=== PATIENT | female | born 1980 | race American Indian/Alaskan Native ===

== ENCOUNTER 2016-07-20 07:45 | Outpatient (CLI) | payer MEDICAID ==
[2016-07-20 08:51] VITALS: BP 135/72
== END 2016-07-20 09:35 | disposition home or self-care (01) ==
LOC: TRG 07:45
PROVIDERS: ATTEND Obstetrics & Gynecology Gynecology
DX: O77.9 Labor and delivery complicated by fetal stress, unspecified (principal); O47.1 False labor at or after 37 completed weeks of gestation; Z3A.39 39 weeks gestation of pregnancy
CPT/HCPCS: 59025

== ENCOUNTER 2016-07-20 14:16 | Inpatient (IN) | payer MEDICAID ==
[2016-07-20] MEDS ORDERED: PITOCin/NS 20 UNIT/1000ML DRIP 1,000 ML IV ONE (15:01)
--- NOTE | 2016-07-20 15:01 | History and Physical Report ---
History of Present Illness Date of examination: 07/20/16 Date of admission: 07/20/16 14:48 Chief complaint: Spontaneous ruptured membranes History of present illness: 35-year-old at 39+2 weeks presents in active labor, she is a [facility] patient. Per patient, care has been unremarkable have no records at this time. GBS negative per patient On exam on LDRP, she has bulging membranes with no cervix felt ?~ 8-9 cm suspected. Bedside sono confirms cephalic presentation. Past History Past Medical History: no pertinent history Past Surgical History: no surgical history (no abdominal surgery) [employer] History: herpes. denies: chlamydia, gonorrhea, hepatitis B, hepatitis C, HIV, syphilis, trichomonas Social history: , full code. denies: smoking, alcohol abuse, prescription drug abuse, IV drug use - Obstetrical History Expected Date of Delivery: 07/24/16 Actual Gestation: 39 Week(s) 3 Day(s) : 5 Para: 4 Medications and Allergies Allergies Allergy/AdvReac Type Severity Reaction Status Date / Time amoxicillin Allergy Severe Hives Verified 07/20/16 08:13 Review of Systems Constitutional: no fever, no chills Eyes: no diplopia, no photophobia Cardiovascular: no chest pain, no orthopnea, no syncope, no lightheadedness, no shortness of breath, no dyspnea on exertion, no high blood pressure Respiratory: no shortness of breath, no dyspnea on exertion Gastrointestinal: abdominal pain (Painful contractions), no nausea, no vomiting Genitourinary: leakage of fluid, contractions, no vaginal bleeding - Physical Exam Abdomen: Positive: normal appearance, soft. Negative: distention, tenderness, guarding, rigidity Genitourinary (Female): Positive: normal external genitalia Uterus: Positive: enlarged (EFW ~ 3500) Adnexa: both: normal Extremities: Positive: normal - Obstetrical FHR: category 1 Cervical Dilatation: 8.5 Results All other labs normal. Assessment and Plan A: IUP at 39+3 wks in active labour -cat 1 tracing P: -Admit -Routine labs -Anticipate - Patient Problems (1) 39 weeks gestation of Current Visit: Yes Status: Acute (2) Spontaneous rupture of amniotic membranes Current Visit: Yes Status: Acute (3) Active labor at term Current Visit: Yes Status: Acute
[2016-07-20] MEDS ORDERED: LACTATED RINGERS 1,000 ML ONE (15:06)
[2016-07-20] MEDS ORDERED: SUBLIMAZE ONE (15:07)
[2016-07-20] MEDS ORDERED: ZOFRAN IV PRN (15:09)
[2016-07-20] MEDS ORDERED: SUBLIMAZE IV PRN (15:09)
[2016-07-20] MEDS ORDERED: BRETHINE IVP PRN (15:09)
[2016-07-20] MEDS ORDERED: MINERAL OIL PO PRN (15:09)
[2016-07-20] MEDS ORDERED: XYLOCAINE 2% INFILTRATI ONE (15:09)
[2016-07-20] MEDS ORDERED: ePHEDrine SULFATE IV PRN ×2 (15:09→17:12)
[2016-07-20] MEDS ORDERED: BRETHINE SUB-Q PRN (15:09)
[2016-07-20] MEDS: LACTATED RINGERS 1,000 ML IV SCH ×2 (15:12→17:00)
[2016-07-20 15:30] LABS: Hematocrit 34.1 % (30.3-42.9); Hemoglobin 11.4 gm/dl (10.1-14.3); Mean Corpuscular HGB Conc 33 % (30-34); Mean Corpuscular Hemoglobin 32 pg (28-32); Mean Corpuscular Volume 96 fl (79-97); Platelet Count 259 K/mm3 (140-440); Red Blood Count 3.56 M/mm3 (3.65-5.03); Red Cell Distribution Width 15.7 % (13.2-15.2); White Blood Count 10.6 K/mm3 (4.5-11.0)
[2016-07-20] MEDS ORDERED: PITOCin/NS 20 UNIT/1000ML DRIP 1,000 ML IV SCH ×2 (16:00→23:00)
[2016-07-20] MEDS ORDERED: PITOCin/NS 30 UNIT/500ML 500 ML IV SCH (16:00)
[2016-07-20] MEDS ORDERED: fentaNYL-BUPIV 2 MCG/ML-0.125% 100 ML EPIDURAL ONE (17:06)
[2016-07-20] MEDS ORDERED: NARCAN 2 MG/2 ML IV PRN (17:12)
--- NOTE | 2016-07-20 17:12 | Anesthesia Consultation ---
Anesthesia Consult and Med Hx Date of service: 07/20/16 - Airway Anesthetic Teeth Evaluation: Good ROM Head & Neck: Adequate Mental/Hyoid Distance: Adequate Mallampati Class: Class II - Pre-Operative Health Status ASA Pre-Surgery Classification: ASA2, Emergency Proposed Anesthetic Plan: Epidural, Spinal - Pulmonary Hx Asthma: No COPD: No Hx Pneumonia: No - Cardiovascular System Hx Hypertension: No - Central Nervous System Hx Seizures: No Hx Psychiatric Problems: No - Endocrine Hx Renal Disease: No Hx End Stage Renal Disease: No Hx Hypothyroidism: No Hx Hyperthyroidism: No - Hematic Hx Anemia: No Hx Sickle Cell Disease: No - Other Systems Hx Alcohol Use: No
[2016-07-20] MEDS: PITOCin/NS 30 UNIT/500ML 500 ML IV SCH ×2 (17:15→18:27)
[2016-07-20] MEDS ORDERED: XYLOCAINE MPF 2% ONE (17:36)
[2016-07-20] MEDS ORDERED: fentaNYL-BUPIV 2 MCG/ML-0.125% 100 ML EPIDURAL SCH (18:00)
--- NOTE | 2016-07-20 19:00 | Progress Note ---
Assessment and Plan - Patient Problems (1) 39 weeks gestation of Current Visit: Yes Status: Acute (2) Spontaneous rupture of amniotic membranes Current Visit: Yes Status: Acute (3) Active labor at term Current Visit: Yes Status: Acute Subjective - Subjective Date of service: 07/20/16 Interval history: Doing well, epidural in place Patient reports: loss of fluid, contractions, no vaginal bleeding Objective - Vital Signs Vital Signs: Vital Signs - 12hr 07/20/16 07/20/16 07/20/16 15:00 16:44 16:54 Temperature 97.6 F Pulse Rate 80 92 H Respiratory 18 Rate Blood Pressure 135/79 144/77 O2 Sat by Pulse Oximetry 07/20/16 07/20/16 07/20/16 16:56 16:58 17:00 Temperature Pulse Rate 109 H 82 90 Respiratory Rate Blood Pressure 189/93 144/67 139/65 O2 Sat by Pulse Oximetry 07/20/16 07/20/16 07/20/16 17:02 17:04 17:05 Temperature Pulse Rate 101 H 96 H 81 Respiratory Rate Blood Pressure 155/99 148/72 O2 Sat by Pulse 99 Oximetry 07/20/16 07/20/16 07/20/16 17:06 17:08 17:10 Temperature Pulse Rate 77 77 77 Respiratory Rate Blood Pressure 145/67 152/70 O2 Sat by Pulse 99 Oximetry 07/20/16 07/20/16 07/20/16 17:11 17:12 17:14 Temperature Pulse Rate 80 80 75 Respiratory Rate Blood Pressure 143/91 138/70 149/67 O2 Sat by Pulse Oximetry 07/20/16 07/20/16 07/20/16 17:15 17:17 17:18 Temperature Pulse Rate 78 92 H 77 Respiratory 18 Rate Blood Pressure 151/100 129/68 O2 Sat by Pulse 95 Oximetry 07/20/16 07/20/16 07/20/16 17:20 17:22 17:24 Temperature Pulse Rate 79 77 85 Respiratory Rate Blood Pressure 138/76 144/74 131/73 O2 Sat by Pulse 97 Oximetry 07/20/16 07/20/16 07/20/16 17:25 17:26 17:27 Temperature Pulse Rate 80 78 82 Respiratory Rate Blood Pressure 133/73 O2 Sat by Pulse 99 94 Oximetry 07/20/16 07/20/16 07/20/16 17:28 17:30 17:33 Temperature Pulse Rate 81 75 78 Respiratory Rate Blood Pressure 147/65 142/65 O2 Sat by Pulse 93 Oximetry 07/20/16 07/20/16 07/20/16 17:35 17:39 17:40 Temperature Pulse Rate 88 73 77 Respiratory Rate Blood Pressure 134/62 O2 Sat by Pulse 98 99 Oximetry 07/20/16 07/20/16 07/20/16 17:43 17:45 17:46 Temperature Pulse Rate 77 77 76 Respiratory Rate Blood Pressure 161/74 142/63 140/65 O2 Sat by Pulse 98 Oximetry 07/20/16 07/20/16 07/20/16 17:48 17:50 17:52 Temperature Pulse Rate 81 83 82 Respiratory Rate Blood Pressure 145/66 144/70 145/65 O2 Sat by Pulse 96 Oximetry 07/20/16 07/20/16 07/20/16 17:54 17:55 17:56 Temperature Pulse Rate 78 79 81 Respiratory Rate Blood Pressure 131/58 138/65 O2 Sat by Pulse 97 Oximetry 07/20/16 07/20/16 07/20/16 17:58 18:00 18:01 Temperature Pulse Rate 81 87 85 Respiratory Rate Blood Pressure 128/62 140/79 O2 Sat by Pulse 98 Oximetry 07/20/16 07/20/16 07/20/16 18:03 18:05 18:06 Temperature Pulse Rate 80 78 83 Respiratory Rate Blood Pressure 152/68 126/71 133/64 O2 Sat by Pulse 95 Oximetry 07/20/16 07/20/16 07/20/16 18:08 18:10 18:12 Temperature Pulse Rate 85 77 81 Respiratory Rate Blood Pressure 142/70 139/68 135/59 O2 Sat by Pulse 97 Oximetry 07/20/16 07/20/16 07/20/16 18:15 18:16 18:18 Temperature Pulse Rate 84 82 77 Respiratory Rate Blood Pressure 140/66 141/77 142/75 O2 Sat by Pulse 98 Oximetry 07/20/16 07/20/16 07/20/16 18:20 18:22 18:24 Temperature Pulse Rate 80 86 82 Respiratory Rate Blood Pressure 141/75 137/70 135/66 O2 Sat by Pulse 95 Oximetry 07/20/16 07/20/16 07/20/16 18:25 18:26 18:28 Temperature Pulse Rate 80 85 78 Respiratory Rate Blood Pressure 144/68 145/70 O2 Sat by Pulse 98 Oximetry 07/20/16 07/20/16 07/20/16 18:30 18:31 18:33 Temperature Pulse Rate 85 90 74 Respiratory Rate Blood Pressure 149/64 134/62 O2 Sat by Pulse 97 Oximetry 07/20/16 07/20/16 07/20/16 18:35 18:36 18:38 Temperature Pulse Rate 79 80 82 Respiratory Rate Blood Pressure 136/65 145/74 143/72 O2 Sat by Pulse 96 Oximetry 07/20/16 07/20/16 07/20/16 18:40 18:42 18:45 Temperature Pulse Rate 79 80 80 Respiratory Rate Blood Pressure 147/75 149/70 152/71 O2 Sat by Pulse 98 98 Oximetry 07/20/16 07/20/16 07/20/16 18:46 18:48 18:50 Temperature Pulse Rate 77 77 76 Respiratory Rate Blood Pressure 151/74 146/70 149/70 O2 Sat by Pulse 99 Oximetry 07/20/16 07/20/16 07/20/16 18:53 18:54 18:55 Temperature Pulse Rate 91 H 79 85 Respiratory Rate Blood Pressure 164/78 160/77 O2 Sat by Pulse 97 Oximetry 07/20/16 18:56 Temperature Pulse Rate 80 Respiratory Rate Blood Pressure 150/74 O2 Sat by Pulse Oximetry - Exam FHR: category 1 Cervical Dilatation: 9 station: -1 - Labs Labs: Abnormal Labs 07/20/16 15:00 RBC 3.56 L RDW 15.7 H Laboratory Results - last 24 hr 07/20/16 07/20/16 15:00 15:00 WBC 10.6 RBC 3.56 L Hgb 11.4 Hct 34.1 MCV 96 MCH 32 MCHC 33 RDW 15.7 H Plt Count 259 Blood Type A POSITIVE Antibody Screen Negative
[2016-07-20] MEDS ORDERED: HEMABATE IM ONE ×2 (20:37→22:01)
[2016-07-20] MEDS ORDERED: MAGNESIUM SULFATE 40GM/1000ML 1,000 ML IV ONE (20:55)
[2016-07-20] MEDS ORDERED: MAGNESIUM SULFATE 4GM/100ML 100 ML IV ONE ×2 (20:55→22:04)
[2016-07-20] MEDS ORDERED: NORMODYNE IV ONE (21:12)
[2016-07-20] MEDS ORDERED: CYTOTEC ONE (21:44)
--- NOTE | 2016-07-20 21:55 | Procedure Note ---
OB Delivery Note - Delivery Date of Delivery: 07/20/16 Surgeon: CHILO CARDONA Estimated blood loss: 500cc - Vaginal Delivery presentation: vertex Delivery position: OP Intrapartum events: meconium, gestational hypertension, shoulder dystocia (less than 30 sec; resolved with Elzbieta and suprapubic pressure) Delivery induction: none Delivery augmentation: pitocin Delivery monitor: external FHT, external uterine Route of delivery: Delivery placenta: manual, adherent Delivery cord: 3 umbilical vessels Episiotomy: none Delivery laceration: none Anesthesia: epidural - Infant A at 1 minute: 8 at 5 minutes: 9 Infant Gender: Female (Del @ 20:25, weight is 8#1 or 3647 gms)
--- NOTE | 2016-07-20 21:59 | Event Note ---
Date: 07/20/16 Patient status post normal vaginal delivery. Intrapartum process complicated by elevated blood pressure with systolic in the 180s range and diastolic in the 100s range. Patient also had shoulder dystocia of less than 30 seconds resolved with suprapubic pressure and Mireille. She had a long third stage of labor requiring Manual extraction of the placenta. Note the patient has been started on magnesium, also received IV labetalol 10 mg times one dose Miso 700 mcg placed NM Plan: -Continue IV magnesium -Obtain HELLP labs -Labetalol 200mg BID -IV antiHTN when necessary -Keep NPO for now -Start Unasyn (Pt claims she has taken PCN previously)
[2016-07-20] MEDS ORDERED: TUCKS PAD TP PRN (22:01)
[2016-07-20] MEDS ORDERED: MILK OF MAGNESIA PO PRN (22:01)
[2016-07-20] MEDS ORDERED: TYLENOL PO PRN (22:01)
[2016-07-20] MEDS ORDERED: CYTOTEC PR ONE (22:01)
[2016-07-20] MEDS ORDERED: PHENERGAN PO PRN (22:01)
[2016-07-20] MEDS ORDERED: LANSINOH TP PRN (22:01)
[2016-07-20] MEDS ORDERED: DULCOLAX PR PRN (22:01)
[2016-07-20] MEDS ORDERED: ANUCORT-HC PR PRN (22:01)
[2016-07-20] MEDS ORDERED: DERMOPLAST TP PRN (22:01)
[2016-07-20] MEDS ORDERED: BENADRYL PO PRN (22:01)
[2016-07-20] MEDS ORDERED: PHENERGAN PR PRN (22:01)
[2016-07-20] MEDS ORDERED: APRESOLINE IV PRN (22:04)
[2016-07-20] MEDS ORDERED: NORMODYNE IV PRN (22:04)
[2016-07-20] MEDS ORDERED: NACL 0.9% 500 ML 500 ML IV ONE (22:08)
[2016-07-20 22:50] LABS: Hematocrit 30.3 % (30.3-42.9); Hemoglobin 10.1 gm/dl (10.1-14.3); Mean Corpuscular HGB Conc 33 % (30-34); Mean Corpuscular Hemoglobin 32 pg (28-32); Mean Corpuscular Volume 97 fl (79-97); Platelet Count 243 K/mm3 (140-440); Red Blood Count 3.11 M/mm3 (3.65-5.03); Red Cell Distribution Width 15.6 % (13.2-15.2); White Blood Count 16.2 K/mm3 (4.5-11.0)
[2016-07-20] MEDS ORDERED: MAGNESIUM SULFATE 40GM/1000ML 1,000 ML IV SCH (23:00)
[2016-07-20] MEDS ORDERED: SODIUM CHLORIDE FLUSH SYRINGE 10 ML IV PRN (23:00)
[2016-07-20] MEDS ORDERED: LACTATED RINGERS 1,000 ML IV SCH (23:00)
[2016-07-20 23:11] LABS: Anion Gap 22 mmol/L; Blood Urea Nitrogen 7 mg/dL (7-17); Calcium 8.1 mg/dL (8.4-10.2); Carbon Dioxide 16 mmol/L (22-30); Chloride 99.7 mmol/L (98-107); Glucose 121 mg/dL (65-100); Potassium 3.8 mmol/L (3.6-5.0); Sodium 134 mmol/L (137-145)
[2016-07-20] MEDS: SENOKOT S PO SCH (23:59)
[2016-07-21] MEDS: NORMODYNE PO SCH ×3 (00:01→22:30)
[2016-07-21] MEDS: UNASYN IV SCH ×4 (00:03→22:25)
[2016-07-21] MEDS: NS IV SCH ×4 (00:03→22:25)
[2016-07-21] MEDS: NORCO 5/325 PO PRN ×2 (01:35→22:27)
[2016-07-21] MEDS: ZOFRAN IV PRN ×2 (02:28→11:52)
[2016-07-21] MEDS: MORPHINE IV PRN ×2 (03:55→08:42)
--- NOTE | 2016-07-21 09:27 | Progress Note ---
Assessment and Plan PPD # 1 s/p -stable Issues -Sudden intrapartum elevation in blood pressure ?Pre-E ??Gest HTN -Prolonged 3rd stage requiring manual extraction -PPH ?Retained placenta -s/p Shoulder dystocia Meds: -Magnesium -Labetalol 200mg BID -Unasyn P: -Start misoprostol 400 g Q4H x 3 doses -Obtain pelvic sono -Await H&H at 10 AM -Continue magnesium at 10 AM -Nothing by mouth until sono report available -Discontinue antibiotics after 2 consecutive doses -Final disposition after results available - Patient Problems (1) Shoulder dystocia during labor and delivery, delivered Current Visit: Yes Status: Acute (2) (normal spontaneous vaginal delivery) Current Visit: Yes Status: Acute (3) 39 weeks gestation of Current Visit: Yes Status: Acute (4) Spontaneous rupture of amniotic membranes Current Visit: Yes Status: Acute (5) Active labor at term Current Visit: Yes Status: Acute Subjective - Subjective Date of service: 07/21/16 Principal diagnosis: PPD#1 , PPH, HTNsive d/o of Interval history: Patient seen & examined, appeared stable and good spirits. RN reports gush of blood last night, which has slowed down. Patient denies fever or chills, no shortness of breath or chest pain, weakness or dizziness Bleeding has slowed down per patient. Pad placed ~ 1 hour ago moderately soaked Patient reports: appetite normal, voiding normally, pain well controlled, flatus , ambulating normally, no dizzy ambulation, no nauseated Pearblossom: doing well Objective - Vital Signs Latest vital signs: Vital Signs Temp Pulse Pulse Resp BP BP Pulse Ox 07/21/16 08:37 98.2 F 105 H 18 140/65 07/21/16 06:00 98.9 F 96 H 18 120/64 07/21/16 04:00 99.1 F 97 H 18 129/62 07/21/16 02:00 100.3 F H 97 H 20 117/54 07/21/16 00:01 103 H 143/73 07/20/16 22:47 100 H 144/71 07/20/16 22:42 104 H 137/69 07/20/16 22:40 101.2 F H 87 22 155/75 07/20/16 22:27 103 H 141/68 07/20/16 22:07 99.7 F H 18 07/20/16 21:56 105 H 138/61 07/20/16 21:44 109 H 124/63 07/20/16 21:41 103 H 139/66 07/20/16 21:26 102 H 136/61 07/20/16 21:17 108 H 174/74 07/20/16 21:13 108 H 174/74 07/20/16 20:56 81 161/69 07/20/16 20:41 96 H 156/70 07/20/16 20:29 100 H 157/84 07/20/16 20:26 100 H 187/105 07/20/16 20:19 51 L 81 L 07/20/16 20:17 99 H 98 07/20/16 20:12 100 H 98 07/20/16 20:07 95 H 98 07/20/16 20:02 90 98 07/20/16 19:58 103 H 170/67 07/20/16 19:57 104 H 98 07/20/16 19:50 84 97 07/20/16 19:45 89 96 07/20/16 19:41 85 158/92 07/20/16 19:40 86 99 07/20/16 19:35 84 97 07/20/16 19:30 88 98 07/20/16 19:27 81 148/70 07/20/16 19:25 84 97 07/20/16 19:20 84 98 07/20/16 19:15 82 98 07/20/16 19:12 90 152/71 07/20/16 19:10 82 97 07/20/16 19:09 77 146/74 07/20/16 19:07 82 153/77 07/20/16 19:05 80 99 07/20/16 19:04 78 149/74 07/20/16 19:02 98.2 F 83 18 153/71 07/20/16 19:01 88 159/79 07/20/16 19:00 85 98 07/20/16 18:59 86 162/81 07/20/16 18:56 80 150/74 07/20/16 18:55 85 97 07/20/16 18:54 79 160/77 07/20/16 18:53 91 H 164/78 07/20/16 18:50 76 149/70 99 07/20/16 18:48 77 146/70 07/20/16 18:46 77 151/74 07/20/16 18:45 80 152/71 98 07/20/16 18:42 80 149/70 07/20/16 18:40 79 147/75 98 07/20/16 18:38 82 143/72 07/20/16 18:36 80 145/74 07/20/16 18:35 79 136/65 96 07/20/16 18:33 74 134/62 07/20/16 18:31 90 149/64 07/20/16 18:30 85 97 07/20/16 18:28 78 145/70 07/20/16 18:26 85 144/68 07/20/16 18:25 80 98 07/20/16 18:24 82 135/66 07/20/16 18:22 86 137/70 07/20/16 18:20 80 141/75 95 07/20/16 18:18 77 142/75 07/20/16 18:16 82 141/77 07/20/16 18:15 84 140/66 98 07/20/16 18:12 81 135/59 07/20/16 18:10 77 139/68 97 07/20/16 18:08 85 142/70 07/20/16 18:06 83 133/64 07/20/16 18:05 78 126/71 95 07/20/16 18:03 80 152/68 07/20/16 18:01 85 140/79 07/20/16 18:00 87 98 07/20/16 17:58 81 128/62 07/20/16 17:56 81 138/65 07/20/16 17:55 79 97 07/20/16 17:54 78 131/58 07/20/16 17:52 82 145/65 07/20/16 17:50 83 144/70 96 07/20/16 17:48 81 145/66 07/20/16 17:46 76 140/65 07/20/16 17:45 77 142/63 98 07/20/16 17:43 77 161/74 07/20/16 17:40 77 99 07/20/16 17:39 73 134/62 07/20/16 17:35 88 98 07/20/16 17:33 78 142/65 07/20/16 17:30 75 93 07/20/16 17:28 81 147/65 07/20/16 17:27 82 94 07/20/16 17:26 78 133/73 07/20/16 17:25 80 99 07/20/16 17:24 85 131/73 07/20/16 17:22 77 144/74 07/20/16 17:20 79 138/76 97 07/20/16 17:18 77 129/68 07/20/16 17:17 92 H 151/100 07/20/16 17:15 78 18 95 07/20/16 17:14 75 149/67 07/20/16 17:12 80 138/70 07/20/16 17:11 80 143/91 07/20/16 17:10 77 99 07/20/16 17:08 77 152/70 07/20/16 17:06 77 145/67 07/20/16 17:05 81 99 07/20/16 17:04 96 H 148/72 07/20/16 17:02 101 H 155/99 07/20/16 17:00 90 139/65 07/20/16 16:58 82 144/67 07/20/16 16:56 109 H 189/93 07/20/16 16:54 92 H 144/77 07/20/16 16:44 80 135/79 07/20/16 15:00 97.6 F 18 Intake and Output 07/20/16 07/21/16 07/21/16 22:59 06:59 14:59 Intake Total 2738 120 Output Total 100 700 Balance -100 2038 120 Intake: IV 875 PITOCin/NS 20 UNIT/1000ML 525 DRIP 1,000 ML @ 125 mls/ hr IV DIRECT ISAK Rx#: [id number] Magnesium Sulfate 40Gm/ 350 1000ML 1,000 ml @ 2 GM/HR 50 mls/hr IV TITR ISAK Rx #:[id number] Oral 120 120 Other 1743 Output: Urine 100 700 Straight 100 Indwelling Catheter 700 Other: Intake, Other Source Saline Solution Total, Intake Amount 120 120 Total, Output Amount 200 Estimated Blood Loss 500 - Exam Abdomen: Present: normal appearance, soft. Absent: distention, tenderness, guarding, rigidity Uterus: Present: tenderness, fundal height below umbilicus Extremities: Present: normal - Labs Labs: Abnormal lab results 07/20/16 07/20/16 07/20/16 Range/Units 15:00 15:00 22:40 WBC 16.2 H (4.5-11.0) K/mm3 RBC 3.56 L 3.11 L (3.65-5.03) M/mm3 RDW 15.7 H 15.6 H (13.2-15.2) % Sodium (137-145) mmol/L Carbon Dioxide (22-30) mmol/L Creatinine (0.7-1.2) mg/dL Glucose (65-100) mg/dL Calcium (8.4-10.2) mg/dL Magnesium (1.7-2.3) mg/dL Crossmatch See Detail 07/20/16 07/21/16 07/21/16 Range/Units 22:40 04:58 07:23 WBC (4.5-11.0) K/mm3 RBC (3.65-5.03) M/mm3 RDW (13.2-15.2) % Sodium 134 L (137-145) mmol/L Carbon Dioxide 16 L (22-30) mmol/L Creatinine 0.4 L (0.7-1.2) mg/dL Glucose 121 H (65-100) mg/dL Calcium 8.1 L (8.4-10.2) mg/dL Magnesium 3.9 H 3.6 H (1.7-2.3) mg/dL Crossmatch
[2016-07-21] MEDS ORDERED: CYTOTEC PO SCH (10:00)
[2016-07-21] MEDS: FEOSOL PO SCH ×2 (10:22→22:29)
[2016-07-21] MEDS: SENOKOT S PO SCH ×2 (10:22→22:30)
[2016-07-21] MEDS: PRENATAL VITAMIN PO SCH (10:22)
[2016-07-21 10:24] LABS: Hematocrit 22.5 % (30.3-42.9); Hemoglobin 7.5 gm/dl (10.1-14.3)
--- NOTE | 2016-07-21 10:55 | Progress Note ---
Subjective Date of service: 07/21/16 Principal diagnosis: PPD#1 , PPH, HTNsive d/o of Interval history: 1st after normal vaginal delivery Patent is in the bed, comfortable. Pain is well controlled with pain meds. Did not ambulated due to MgSO4 infusion. No residual neurological deficit. No anesthesia complications Objective - Constitutional Vitals: Vital Signs - 12hr 07/21/16 07/21/16 07/21/16 00:01 02:00 04:00 Temperature 100.3 F H 99.1 F Pulse Rate 103 H Pulse Rate [ 97 H 97 H Left] Respiratory 20 18 Rate Blood Pressure 143/73 Blood Pressure 117/54 129/62 [Left Arm] 07/21/16 07/21/16 07/21/16 06:00 08:37 10:24 Temperature 98.9 F 98.2 F Pulse Rate 105 H Pulse Rate [ 96 H 105 H Left] Respiratory 18 18 Rate Blood Pressure 140/65 Blood Pressure 120/64 140/65 [Left Arm] - Labs CBC & Chem 7: 07/21/16 10:01 07/20/16 22:40 Labs: Abnormal lab results 07/20/16 07/20/16 07/20/16 Range/Units 15:00 15:00 22:40 WBC 16.2 H (4.5-11.0) K/mm3 RBC 3.56 L 3.11 L (3.65-5.03) M/mm3 Hgb (10.1-14.3) gm/dl Hct (30.3-42.9) % RDW 15.7 H 15.6 H (13.2-15.2) % Sodium (137-145) mmol/L Carbon Dioxide (22-30) mmol/L Creatinine (0.7-1.2) mg/dL Glucose (65-100) mg/dL Calcium (8.4-10.2) mg/dL Magnesium (1.7-2.3) mg/dL Crossmatch See Detail 07/20/16 07/21/16 07/21/16 Range/Units 22:40 04:58 07:23 WBC (4.5-11.0) K/mm3 RBC (3.65-5.03) M/mm3 Hgb (10.1-14.3) gm/dl Hct (30.3-42.9) % RDW (13.2-15.2) % Sodium 134 L (137-145) mmol/L Carbon Dioxide 16 L (22-30) mmol/L Creatinine 0.4 L (0.7-1.2) mg/dL Glucose 121 H (65-100) mg/dL Calcium 8.1 L (8.4-10.2) mg/dL Magnesium 3.9 H 3.6 H (1.7-2.3) mg/dL Crossmatch 07/21/16 Range/Units 10:01 WBC (4.5-11.0) K/mm3 RBC (3.65-5.03) M/mm3 Hgb 7.5 L (10.1-14.3) gm/dl Hct 22.5 L D (30.3-42.9) % RDW (13.2-15.2) % Sodium (137-145) mmol/L Carbon Dioxide (22-30) mmol/L Creatinine (0.7-1.2) mg/dL Glucose (65-100) mg/dL Calcium (8.4-10.2) mg/dL Magnesium (1.7-2.3) mg/dL Crossmatch
--- NOTE | 2016-07-21 11:33 | Ultrasound Report ---
ULTRASOUND PELVIC LIMITED - TRANSABDOMINAL INDICATION: hemorrhage, vaginal bleeding. Status post vaginal delivery last night. Assess uterus for placental abnormality. COMPARISON: None similar at this institution. FINDINGS: Transabdominal pelvic sonography demonstrates an anteverted, uterus approximately 26.1 x 11.4 x 11.5 cm. Endometrial stripe appears unremarkable superiorly toward the fundus, though endometrial canal widened/occupied by approximately 10 x 5.2 cm echogenic material along its mid to lower extent with some intrinsic blood flow as on image 16, amongst others. No significant pelvic free fluid identified. Neither of the ovaries visualized. CONCLUSION: Echogenic material widening the mid to lower endometrial canal, possibly retained parts of conception in the given setting versus hemorrhagic products. Please correlate. Thank you for the opportunity to participate in this patient's care.
--- NOTE | 2016-07-21 12:29 | Event Note ---
Date: 07/21/16 Reviewed sonogram results, appears to have some retained products. Plan at this time is to proceed with D&C in the OR, transfuse 2 units packed red blood cells now due to low H&H.
[2016-07-21] MEDS ORDERED: REGLAN PO NR (14:00)
[2016-07-21] MEDS ORDERED: NACL 0.9% 500 ML 500 ML IV SCH (14:00)
[2016-07-21] MEDS ORDERED: PEPCID PO NR (14:00)
[2016-07-21] MEDS ORDERED: LACTATED RINGERS 1,000 ML IV SCH (14:00)
[2016-07-21] MEDS ORDERED: VERSED IV NR (14:00)
--- NOTE | 2016-07-21 14:41 | Anesthesia Consultation ---
Anesthesia Consult and Med Hx Date of service: 07/21/16 - Airway Anesthetic Teeth Evaluation: Good ROM Head & Neck: Adequate Mental/Hyoid Distance: Adequate Mallampati Class: Class II Intubation Access Assessment: Probably Good - Pulmonary Exam CTA: Yes - Cardiac Exam Cardiac Exam: RRR - Pre-Operative Health Status ASA Pre-Surgery Classification: ASA2 Proposed Anesthetic Plan: General - Pulmonary Hx Asthma: No COPD: No Hx Pneumonia: No - Cardiovascular System Hx Hypertension: No - Central Nervous System Hx Seizures: No Hx Psychiatric Problems: No - Endocrine Hx Renal Disease: No Hx End Stage Renal Disease: No Hx Hypothyroidism: No Hx Hyperthyroidism: No - Hematic Hx Anemia: No Hx Sickle Cell Disease: No - Other Systems Hx Alcohol Use: No Hx Obesity: Yes (BMI 35)
[2016-07-21] MEDS ORDERED: DILAUDID IV PRN (14:42)
--- NOTE | 2016-07-21 14:42 | Anesthesia Day of Surgery ---
Anesthesia Day of Surgery - Day of Surgery Patient Examined: Yes Patient H&P Reviewed: Yes Patient is NPO: Yes
[2016-07-21] MEDS ORDERED: DIPRIVAN 10 MG/ML IV ONE (15:40)
[2016-07-21] MEDS ORDERED: DILAUDID ONE (15:40)
[2016-07-21] MEDS ORDERED: XYLOCAINE MPF 2% ONE (15:41)
[2016-07-21] MEDS ORDERED: ZOFRAN ONE (15:41)
[2016-07-21] MEDS ORDERED: DECADRON ONE (15:41)
[2016-07-21] MEDS ORDERED: NITROGLYCERIN 50 MG/250 ML ONE (16:39)
[2016-07-21] MEDS ORDERED: NACL 0.9% 1000 ML 1,000 ML ONE (16:40)
[2016-07-21] MEDS ORDERED: NACL 0.9% IR ONE (16:50)
[2016-07-21] MEDS ORDERED: CYTOTEC VG ONE (16:50)
--- NOTE | 2016-07-21 17:25 | Operative Report ---
Operative Report Operative Report: DATE: 07/21/2016 PREOPERATIVE DIAGNOSIS: Retained adherent placenta POSTOP DIAGNOSIS: Same NAME OF PROCEDURE: Manual extraction of placenta in the OR SURGEON: CHILO CARDONA MD PEPPER CUTTER: None ANESTHESIA: LMA EBL: Minimal PATHOLOGY SPECIMEN: Placenta URINE OUTPUT: 100 mL prior to procedure FINDINGS: Open os, uterus measures >18 cm, thick mildly adherent segment of placenta in uterus DESCRIPTION OF PROCEDURE: Procedure in detail patient taken to the operating room where she was prepped and draped in sterile fashion placed in dorsolithotomy position. I placed my hand in the vagina and was able to access the uterus without need for dilation. I then placed a hand on her abdomen palpating her fundus while I gently teased out the remnant placental fragment which was mildy adherent. Minimall bleeding noted during procedure of dark colored blood. Patient was then started on Pitocin and received 800 g of Cytotec MD. She was also already on Unasyn. She tolerated the procedure well and instrument counts were correct 2 she is transferred to PACU in stable condition thank you
[2016-07-21] MEDS: MOTRIN PO SCH ×3 (18:45→22:28)
--- NOTE | 2016-07-21 19:29 | Post Anesthesia Evaluation ---
- Post Anesthesia Evaluation Patient Participated: Yes Airway Patent: Yes Stable Respiratory Function: Yes Nausea/Vomiting: No Temp > 96.8F: Yes Pain Manageable: Yes Adequeate Hydration: Yes Anesthesia Complications: No Block Receding Appropriately: Not Applicable Patient on Ventilator: No
[2016-07-21] MEDS: COLACE PO SCH (22:30)
[2016-07-22] MEDS: MORPHINE IV PRN (02:00)
[2016-07-22] MEDS: NS IV SCH (06:00)
[2016-07-22] MEDS: UNASYN IV SCH (06:00)
[2016-07-22 06:20] LABS: Basophils % (Auto) 0.2 % (0.0-1.8); Eosinophils % (Auto) 0.2 % (0.0-4.3); Hemoglobin 7.6 gm/dl (10.1-14.3); Mean Corpuscular HGB Conc 34 % (30-34); Mean Corpuscular Hemoglobin 33 pg (28-32); Mean Corpuscular Volume 95 fl (79-97); Platelet Count 191 K/mm3 (140-440); Red Blood Count 2.33 M/mm3 (3.65-5.03); Red Cell Distribution Width 15.5 % (13.2-15.2)
[2016-07-22] MEDS: NORCO 5/325 PO PRN ×2 (06:25→11:56)
[2016-07-22] MEDS: MOTRIN PO SCH ×2 (06:25→11:56)
--- NOTE | 2016-07-22 06:50 | Progress Note ---
Assessment and Plan PPD # 1 s/p /POD # 1 s/p evacuation of retained placenta -stable Issues -Sudden intrapartum elevation in blood pressure ?Pre-E ??Gest HTN -Prolonged 3rd stage requiring manual extraction -PPH ?Retained placenta -s/p Shoulder dystocia P: -Repeat H/H at 13:00 -D/C IV and heplaock -Possible D/C later today - Patient Problems (1) Shoulder dystocia during labor and delivery, delivered Current Visit: Yes Status: Acute (2) (normal spontaneous vaginal delivery) Current Visit: Yes Status: Acute (3) 39 weeks gestation of Current Visit: Yes Status: Acute (4) Spontaneous rupture of amniotic membranes Current Visit: Yes Status: Acute (5) Active labor at term Current Visit: Yes Status: Acute Subjective - Subjective Date of service: 07/22/16 Principal diagnosis: PPD#2/POD # 1 , PPH, HTNsive d/o of Interval history: Patient seen & examined, stable and doing well. No longer has heavy VB, ambulating w/out difficulty, adequate bowel and bladder function Patient reports: appetite normal, voiding normally, pain well controlled, ambulating normally, no dizzy ambulation, no nauseated : doing well Objective - Vital Signs Latest vital signs: Vital Signs Temp Pulse Pulse Resp BP BP Pulse Ox 07/22/16 04:35 98.6 F 89 20 136/60 07/22/16 02:00 18 07/21/16 23:30 98.6 F 86 22 143/56 07/21/16 22:30 88 142/62 07/21/16 21:00 98.6 F 91 H 142/62 07/21/16 18:35 98.4 F 83 20 147/61 07/21/16 18:20 86 20 135/60 96 07/21/16 18:00 86 20 137/63 96 07/21/16 17:45 97.8 F 85 18 133/81 96 07/21/16 17:40 92 H 20 136/61 96 07/21/16 17:35 90 20 133/61 94 07/21/16 17:30 92 H 18 127/60 95 07/21/16 17:25 88 16 123/70 95 07/21/16 17:22 99 F 89 23 126/68 97 07/21/16 16:16 99.1 F 94 H 24 148/51 95 07/21/16 16:00 98.9 F 90 20 131/54 96 07/21/16 15:36 98.9 F 90 22 132/49 95 07/21/16 15:06 99.2 F 94 H 20 137/54 95 07/21/16 14:36 99.1 F 94 H 24 148/51 95 07/21/16 14:20 97 H 20 135/61 07/21/16 10:24 105 H 140/65 07/21/16 08:37 98.2 F 105 H 18 140/65 Intake and Output 07/21/16 07/21/16 07/22/16 14:59 22:59 06:59 Intake Total 815 600 50 Balance 815 600 50 Intake: IV 575 600 50 PITOCin/NS 20 UNIT/1000ML 300 DRIP 1,000 ML @ 125 mls/ hr IV DIRECT ISAK Rx#: [id number] Magnesium Sulfate 40Gm/ 175 1000ML 1,000 ml @ 2 GM/HR 50 mls/hr IV TITR ISAK Rx #:[id number] Unasyn/Ns 1.5 gm/50 ml 50 50 50 ml @ 100 mls/hr IV Q6HR ISAK Rx#:[id number] Lactated Ringers 1,000 ml 300 @ 75 mls/hr IV DIRECT ISAK Rx#:[id number] Oral 240 Blood Product 0 Leukoreduced Red Blood 0 Cells Unit [id number] Other: Total, Intake Amount 120 Voiding Method Toilet # Voids Indwelling Catheter 1 - Exam Abdomen: Present: normal appearance, soft. Absent: distention, tenderness, guarding, rigidity Uterus: Present: fundal height below umbilicus. Absent: tenderness Extremities: Present: normal - Labs Labs: Abnormal lab results 07/20/16 07/21/16 07/21/16 Range/Units 15:00 07:23 10:01 WBC (4.5-11.0) K/mm3 RBC (3.65-5.03) M/mm3 Hgb 7.5 L (10.1-14.3) gm/dl Hct 22.5 L D (30.3-42.9) % MCH (28-32) pg RDW (13.2-15.2) % Seg Neutrophils % (40.0-70.0) % Seg Neutrophils # (1.8-7.7) K/mm3 Magnesium 3.6 H (1.7-2.3) mg/dL Crossmatch See Detail 07/22/16 Range/Units 05:46 WBC 12.0 H (4.5-11.0) K/mm3 RBC 2.33 L (3.65-5.03) M/mm3 Hgb 7.6 L (10.1-14.3) gm/dl Hct 22.0 L (30.3-42.9) % MCH 33 H (28-32) pg RDW 15.5 H (13.2-15.2) % Seg Neutrophils % 74.5 H (40.0-70.0) % Seg Neutrophils # 8.9 H (1.8-7.7) K/mm3 Magnesium (1.7-2.3) mg/dL Crossmatch
--- NOTE | 2016-07-22 06:54 | Discharge Summary ---
Providers - Providers Date of Admission: 07/20/16 14:48 Date of discharge: 07/22/16 Attending physician: CHILO CARDONA 07/20/16 22:02 Consult to Aerosol Supervisor [CONS] Routine Reason For Exam: assistance with , SNS Primary care physician: CHILO CARDONA Hospitalization Reason for admission: active labor, IUP at term Delivery: Procedure: other (Evacuation of retained adherent placenta in OR) Procedure details: See OP note Episiotomy: none Laceration: none Other procedures: curettage (Evacuation of retained adherent placenta in OR) complications: retained placenta, transfusion Discharge diagnosis: IUP at term delivered, other (Evacuation of retained adherent placenta in OR; Anemia) [place] baby: female Hospital course: Patient admitted to the floor in active labour. Delivery complicated by shoulder dystocia, elevated BP and retained placenta Patient taken to OR for mannual extraction of retained placenta on PPD # 1 She recieved 2 units PRBC She is D/C home in stable condition Condition at discharge: Good Disposition: DISCHARGED TO HOME OR SELFCARE - Discharge Diagnoses (1) Shoulder dystocia during labor and delivery, delivered Status: Acute (2) (normal spontaneous vaginal delivery) Status: Acute (3) 39 weeks gestation of Status: Acute (4) Spontaneous rupture of amniotic membranes Status: Acute (5) Active labor at term Status: Acute Plan - Discharge Medications Prescriptions: Ibuprofen [Motrin 600 MG tab] 600 mg PO Q8H PRN #30 tablet PRN Reason: Pain Multivitamin with Iron [Multivitamins with Iron] 1 each PO DAILY #30 tablet HYDROcodone/APAP 5-325 [Hessmer 5/325] 1 each PO Q6HR PRN #30 tablet PRN Reason: Pain Labetalol [Normodyne TAB] 200 mg PO BID #60 tablet - Provider Discharge Summary Activity: no sex for 6 weeks, no heavy lifting 4 weeks, no strenuous exercise Diet: routine Additional instructions: [] Smoking cessation referral if applicable(refer to patient education folder for contact #) [] Refer to [facility] Booklet Call your doctor immediately for: * Fever > 100.5 * Heavy vaginal bleeding ( >1 pad per hour) * Severe persistent headache * Shortness of breath * Reddened, hot, painful area to leg or breast * Drainage or odor from incision. * Keep incision clean and dry at all times and follow doctor's instructions regarding bathing/showering - Follow up plan Follow up: CHILO CARDONA MD [Primary Care Provider] - 7 Days
[2016-07-22] MEDS: COLACE PO SCH (09:38)
[2016-07-22] MEDS: PRENATAL VITAMIN PO SCH (09:38)
[2016-07-22] MEDS: SENOKOT S PO SCH (09:38)
[2016-07-22] MEDS: FEOSOL PO SCH (09:39)
[2016-07-22] MEDS: NORMODYNE PO SCH (09:39)
[2016-07-22 13:08] LABS: Hematocrit 21.7 % (30.3-42.9); Hemoglobin 7.4 gm/dl (10.1-14.3)
[2016-07-22 16:18] VITALS: BP 134/58
== END 2016-07-22 17:05 | disposition home or self-care (01) | DRG 767 ==
LOC: TRG 14:16 → LD 14:48 → OB 23:19
PROVIDERS: ADMIT Obstetrics & Gynecology Gynecology; ATTEND Obstetrics & Gynecology Gynecology
PROC: 10E0XZZ Delivery of Products of Conception, External Approach (ICD-10-PCS; principal; 2016-07-20)
PROC: 3E0S3CZ (ICD-10-PCS; 2016-07-20)
PROC: 00HU33Z Insertion of Infusion Device into Spinal Canal, Percutaneous Approach (ICD-10-PCS; 2016-07-20)
PROC: 10D17ZZ Extraction of Products of Conception, Retained, Via Natural or Artificial Opening (ICD-10-PCS; 2016-07-21)
PROC: 30233N1 Transfusion of Nonautologous Red Blood Cells into Peripheral Vein, Percutaneous Approach (ICD-10-PCS; 2016-07-21)
DX: O13.4 Gestational [pregnancy-induced] hypertension without significant proteinuria, complicating childbirth (principal); O77.0 Labor and delivery complicated by meconium in amniotic fluid; O66.0 Obstructed labor due to shoulder dystocia; O99.214 Obesity complicating childbirth; O72.2 Delayed and secondary postpartum hemorrhage; Z3A.39 39 weeks gestation of pregnancy; Z37.0 Single live birth; Z68.35 Body mass index [BMI] 35.0-35.9, adult
CPT/HCPCS: 36415; 76857; 80048; 83735; 85014; 85018; 85025; 85027; 86850; 86900; 86901; 86920; 88305; 88307; 99211; G0463; J0295; J1100; J1170; J2250; J2270; J2405; J2590; J2704; J3010; J3475; J7030; J7040; J7120; P9016